=== PATIENT | female | born 1980 | race African-American/Black ===

== ENCOUNTER 2016-09-30 04:18 | Observation (INO) | payer OTHER ==
--- NOTE | ~2016-09-30 | OP ---
Record Of Operation [facility] [address] [place]. 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 PROCEDURE: 1. C5-C6 total disk replacement. 2. Use of the microscope. 3. Use of stereotactic guidance. SURGEON: Justin Kolb M.D. FLUIDS: Approximately 1200 mL LR. ESTIMATED BLOOD LOSS: 15 mL. DRAINS: One drain. COMPLICATIONS: None. ANTIBIOTIC: Preoperatively. IMPLANTS: LDR Mobi-C. PREOPERATIVE HISTORY: This is a very friendly, 36-year-old female, who works at the long term, who was injured and has been having complaints of some neck pain, but predominantly radiating arm pain with severe numbness and tingling. She was found to have some cord compression but overall, I was primarily having pain and numbness. She has undergone conservative care. She overall is healthy with the exception of significant obesity. Her body mass index is 67. She now discussed the increased risk of infection given her obesity. DESCRIPTION OF PROCEDURE: After informed consent was obtained, the patient was brought to the operating room at her request and general anesthesia was achieved. She was placed in supine position and the neck was prepped and draped in a sterile fashion. The positioning alone took over an hour because of her size. Following prepping and draping, the right-sided approach was performed. We had to use a larger incision and larger amount of dissection given the size of the patient. The subperiosteal exposure was completed and the Plug Stitcher retractor was placed. The proper level was difficult to confirm because of the patient's size and inability to well visualize the C5-6 space under fluoroscopy. Record Of Operation [facility] [address] [place]. [address] NAME: AGNES ELMORE : 76 STATUS : ADM Rk PAT#: [id number] AGE: 36 ADM/REG DATE : 09/30/16 MR#: [id number] REPORT SERV DATE: 10/01/16 DICTATED BY: JUSTIN KOLB II DATE: 10/01/16 REPORT STATUS : Draft TRANSCRIBED BY: CRISTINE DATE: 10/01/16 At this point, the O-arm stealth imaging was brought into place and the intraoperative CT scan completed. At this point, using this technique, we were able to confirm that we were at the proper level. At this point, the diskectomy was now performed under microscopic visualization following [place] pin distraction. The disk was now removed. There was a large rent in the posterior longitudinal ligament. At this point, the endplates were prepared. The concavity of C5 was maintained using the standard technique. At this point, we then removed the posterior lateral osteophytes. The posterior longitudinal ligament was further explored and taken down and a disk fragment removed. At this point, the spinal cord and nerve roots were well decompressed bilaterally. At this point, the trialing was performed although difficult because of the fluoroscopy issue. We measured the disk space anterior to posterior with a nerve hook and then used this to help facilitate implant size choice. We then placed this particular trial and performed a repeat CT scan to help assist with confirmation of the appropriate size. At this point, the appropriate size total disk replacement was placed. Once again, we then repeated the CT scan that confirmed acceptable placement as well as proper sizing. At this point, the standard closure was performed over a drain. The patient was then extubated and transferred to PACU in stable condition. Plan will be for as tolerated activities. However, it may be six to eight weeks before she will be able to return regular duty. It is my understanding that her workplace cannot accommodate light duty. If she could have light duty, then I would think she could go back to work likely around the four-week ilan. MICHAEL/CRISTINE Justin Kolb II, M.D. / [id number] CC: Justin Kolb II, M.D.
[~2016-09-30 04:18] MED LIST: ALEVE220 MG PO; CELEBREX2 PO; NEUR300 PO; ULTRAM50 PO; ZANAFLEX 4 MG TA4 MG PO
[2016-10-01] MEDS ORDERED: NORCO1 TAB PO (11:03)
[2016-10-01] MEDS ORDERED: V2 PO (11:04)
== END 2016-10-01 17:00 | disposition home or self-care (01) ==
LOC: SDC 04:18 → 3SO 10:48
PROVIDERS: Orthopaedic Surgery
PROC: 0RR30JZ Replacement of Cervical Vertebral Disc with Synthetic Substitute, Open Approach (ICD-10-PCS; principal; 2016-09-30 05:45)
DX: M50.122 Cervical disc disorder at C5-C6 level with radiculopathy (principal); M50.022 Cervical disc disorder at C5-C6 level with myelopathy; M48.02 Spinal stenosis, cervical region; E66.01 Morbid (severe) obesity due to excess calories; J45.909 Unspecified asthma, uncomplicated; Z68.44 Body mass index [BMI] 60.0-69.9, adult; Z98.51 Tubal ligation status; Z98.890 Other specified postprocedural states; Z79.899 Other long term (current) drug therapy
CPT/HCPCS: 82962; 83036; 84703; 87641; 88304; 88311; 93971; 94660; 96374; 96375; 96376; A9270-GY; G0378; J0330; J0690; J1170; J2250; J2370; J2405; J2710; J3010